=== PATIENT | female | born 1995 | race African-American/Black ===

== ENCOUNTER 2017-06-05 08:34 | Emergency (ER) | payer BC ==
[2017-06-05 10:21] VITALS: BP 124/68
--- NOTE | 2017-06-06 17:41 | ED ---
Jac Farfan Angela, scribed for Lauri Dallas MD on 06/05/17 at 0908 . Complex/Multi-Sys Presentation - HPI Summary HPI Summary: This pt is a 22 y/o female [facility]/o sore throat and cough x3 days ago. Pt denies fever, rhinorrhea, chest pain, SOB. She denies difficulty swallowing. Pt denies any PMHx. She is currently on Vitamin D and control. Pt is a student in [employer]. - History Of Current Complaint Chief Complaint: EDThroatPain Time Seen by Provider: 06/05/17 08:49 Hx Obtained From: Patient Onset/Duration: Lasting Days, Still Present Timing: Days Severity Initially: Moderate Location: Pain At: - throat Aggravating Factor(s): nothing Alleviating Factor(s): nothing Associated Signs And Symptoms: Positive: Cough, Other - POS: sore throat. NEG: nasal discharge. Negative: SOB, Chest Pain, Fever PMH/Surg Hx/FS Hx/Imm Hx Endocrine/Hematology History: Denies: Hx Diabetes Cardiovascular History: Denies: Hx Hypertension Infectious Disease History: No Infectious Disease History: Denies: Traveled Outside the [place] in Last 30 Days - Family History Known Family History: Positive: Diabetes - Mother, Other - High cholesterol - Social History Occupation: Student - at [employer] Alcohol Use: None Substance Use Type: Reports: None Smoking Status (MU): Never Smoked Tobacco Review of Systems Negative: Fever Positive: Sore Throat. Negative: Nasal Discharge Positive: Cough All Other Systems Reviewed And Are Negative: Yes Physical Exam - Summary Physical Exam Summary: VITAL SIGNS: Reviewed. GENERAL: Patient is a well-developed and nourished female who is lying comfortable in the stretcher. Patient is not in any acute respiratory distress. HEAD AND FACE: No signs of trauma. No ecchymosis, hematomas or skull depressions. No sinus tenderness. EYES: PERRLA, EOMI x 2, No injected conjunctiva, no nystagmus. EARS: Hearing grossly intact. Ear canals and tympanic membranes are within normal limits. MOUTH: Pharynx is erythematous. NECK: Supple, trachea is midline, no adenopathy, no JVD, no carotid bruit, no c- spine tenderness, neck with full ROM. CHEST: Symmetric, no tenderness at palpation LUNGS: Clear to auscultation bilaterally. No wheezing or crackles. CVS: Regular rate and rhythm, S1 and S2 present, no murmurs or gallops appreciated. ABDOMEN: Soft, non-tender. No signs of distention. No rebound no guarding, and no masses palpated. Bowel sounds are normal. EXTREMITIES: FROM in all major joints, no edema, no cyanosis or clubbing. NEURO: Alert and oriented x 3. No acute neurological deficits. Speech is normal and follows commands. SKIN: Dry and warm Triage Information Reviewed: Yes Vital Signs On Initial Exam: Initial Vitals Temp Pulse Resp BP Pulse Ox 98.7 F 83 18 127/53 100 06/05/17 08:43 06/05/17 08:43 06/05/17 08:43 06/05/17 08:43 06/05/17 08:43 Vital Signs Reviewed: Yes Diagnostics - Vital Signs Vital Signs Temp Pulse Resp BP Pulse Ox 06/05/17 08:43 98.7 F 83 18 127/53 100 - Laboratory Lab Results: Lab Results 06/05/17 06/05/17 Range/Units 08:55 09:15 Monoscreen Negative (Negative) Group A Strep Rapid Negative (Negative) Lab Statement: Any lab studies that have been ordered have been reviewed, and results considered in the medical decision making process. Complex Multi-Symp Course/Dx Course Of Treatment: This pt is a 22 y/o female presenting to [facility] c/o sore throat and cough x3 days ago. Pt denies fever, rhinorrhea, chest pain, SOB. She denies difficulty swallowing. Pt denies any PMHx. She is currently on Vitamin D and control. Pt is a student in [employer]. Rapid strep is negative. Infectious mononucleosis is also negative. Since the pt is still having runny nose, congestion and we dont have enough kits to test for influenza, I will treat her for presumptive influenza. I did give her a prescription for Tamiflu. She will be discharged to home with follow up from her PCP. Pt is hemodynamically stable, alert and oriented x3. - Diagnoses Differential Diagnoses/HQI/PQRI: Other - URI, Pharyngitis, Bronchitis Provider Diagnoses: Influenza Discharge - Discharge Plan Condition: Stable Disposition: HOME Prescriptions: Oseltamivir CAP* [Tamiflu CAP*] 75 mg PO BID #10 cap Patient Education Materials: Influenza (ED) Referrals: [facility] - Harlan CHONG [Primary Care Provider] - 3 Days Additional Instructions: Please follow up with your primary care provider. RETURN TO THE ED FOR ANY WORSENING SYMPTOMS. The documentation as recorded by the Jac bhat Angela accurately reflects the service I personally performed and the decisions made by , Lauri Dallas MD.
== END 2017-06-05 10:19 | disposition home or self-care (01) ==
LOC: ED 08:34
DX: J11.1 Influenza due to unidentified influenza virus with other respiratory manifestations (principal)
CPT/HCPCS: 36415; 86308; 87651; 99282